=== PATIENT | female | born 1950 ===

== ENCOUNTER 2017-05-01 06:50 | Day surgery (SDC) | payer MEDICARE, BC ==
[2017-04-27 10:42] VITALS: RESP 18; BMI 28.1
[2017-05-01] MEDS ORDERED: ACETIC ACID 3% 30 ML LIQUID MC ONE ×3 (07:51→09:23)
[2017-05-01] MEDS ORDERED: Ferric Subsulfate Sol(60 mL) ONE (07:51)
[2017-05-01] MEDS ORDERED: Strong Iodine Topical Sol. 5%-10% ONE (07:51)
[2017-05-01] MEDS ORDERED: Midazolam 2 MG/2 ML VIAL ONE (08:57)
[2017-05-01] MEDS ORDERED: Propofol 10 mg/ml Inj (20 ML) ONE (08:57)
[2017-05-01] MEDS ORDERED: Lactated Ringer's 1,000 ML IV ONE (09:20)
[2017-05-01] MEDS ORDERED: Ferric Subsulfate Sol(60 mL) TP ONE (09:40)
[2017-05-01] MEDS ORDERED: HYDROmorphone 0.5 mg/0.5 ml ISec IVP PRN (09:59)
[2017-05-01] MEDS ORDERED: Lactated Ringer's 1,000 ML IV SCH (10:00)
[2017-05-01 11:18] VITALS: O2SAT 99
[2017-05-01 12:21] VITALS: BP 125/54; PULSE 86; TEMP 97.7
--- NOTE | 2017-05-04 14:37 | OP ---
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 DESCRIPTION OF PROCEDURE: With the patient in the dorsal lithotomy position under general anesthesia, the patient was prepped and draped in the usual sterile manner. A straight cath was used to enter the bladder, after which the cervix was examined and found to be very flat; however, biopsy was done at 4, 11 and 12, maintaining hemostasis. After this was done, the patient was moved from the operating table and taken to the recovery room in satisfactory condition. The patient was in satisfactory condition on her way to recovery room. Vitor Handy MD
== END 2017-05-01 12:15 | disposition home or self-care (01) ==
LOC: H.OPSURG 06:50
PROVIDERS: ATTEND Specialist
DX: R87.619 Unspecified abnormal cytological findings in specimens from cervix uteri (principal); R87.613 High grade squamous intraepithelial lesion on cytologic smear of cervix (HGSIL); N87.1 Moderate cervical dysplasia; N72 Inflammatory disease of cervix uteri
CPT/HCPCS: 36415; 57454; 88305; J2001; J2250; J2704; J3010; J7120